=== PATIENT | male | born 1950 | race African-American/Black ===

== ENCOUNTER 2016-06-11 03:47 | Emergency (ER) | payer BC, MEDICARE ==
[~2016-06-11] VITALS: Ht 180.3 cm; Wt 125.0 kg
[~2016-06-11 03:47] MED LIST: AMIO200T44 PO; ATOR40TA28 PO; BUME1TAB30 PO; FERR324T4 PO; FISH1CAP49 PO; GABA-771 PO; INSU100V12 SQ; LOSA50TA37 PO; LUBI24CA2 PO; OXYC10 PO; OXYC30TA86 PO; RIVA10 PO; SPIR25 PO; TRAZ-147 PO; VIT1TABL95 PO
[2016-06-11 04:06] LABS: GLUCOSE,POINT OF CARE 229 MG/DL (70-110)
[2016-06-11] MEDS ORDERED: LINA145C PO (04:11)
[2016-06-11] MEDS ORDERED: OXYC10 PO (04:11)
[2016-06-11] MEDS ORDERED: LOSA50TA37 PO (04:11)
[2016-06-11] MEDS ORDERED: BUME1TAB30 PO (04:11)
[2016-06-11] MEDS ORDERED: GABA-771 PO (04:11)
[2016-06-11] MEDS ORDERED: CARV12 PO (04:11)
[2016-06-11] MEDS ORDERED: RANO500T3 PO (04:11)
[2016-06-11] MEDS ORDERED: INSU200I4 SQ (04:11)
[2016-06-11] MEDS ORDERED: INSU100V SQ (04:11)
[2016-06-11] MEDS ORDERED: ASPI81TA42 PO (04:11)
[2016-06-11 05:08] LABS: BASOPHILS % (AUTO) 0.2 % (0.0-2.0); EOSINOPHILS % (AUTO) 1.2 % (1.0-6.0); HEMATOCRIT 31.1 % (41-53); HEMOGLOBIN 9.9 g/dL (13.5-17.5); LYMPHOCYTES # (AUTO) 0.9 K/uL (1.0-4.8); MEAN CORPUSCULAR HEMOGLOBIN 27.2 pg (26.0-34.0); MEAN CORPUSCULAR VOLUME 85 fL (80-100); MONOCYTES # (AUTO) 0.9 K/uL (0.1-1.0); MONOCYTES % (AUTO) 8.8 % (2.0-9.0); NEUTROPHILS # (AUTO) 8.5 K/uL (1.8-7.7); NEUTROPHILS % (AUTO) 80.8 % (40.0-70.0); PLATELET COUNT (AUTO) 182 K/uL (150-450); RED BLOOD CELL COUNT(AUTO) 3.64 MIL/uL (4.50-5.90); RED CELL DISTRIBUTION WIDTH 14.8 % (11.5-14.5); WHITE BLOOD COUNT (AUTO) 10.5 K/uL (4.5-11.0)
[2016-06-11] MEDS ORDERED: PANTOPRAZOLE SODIUM 40 MG/VIAL IVP ONE (05:15)
[2016-06-11] MEDS ORDERED: ONDANSETRON HCL 4 MG/2 ML VIAL IVP ONE (05:15)
[2016-06-11] MEDS ORDERED: MORPHINE SULFATE 4 MG/ML SYRINGE IVP ONE (05:15)
[2016-06-11 05:25] LABS: INR 1.1 (0.9-1.1); PROTHROMBIN TIME 11.6 SEC (9.4-11.6)
[2016-06-11 05:30] LABS: ANION GAP 3 mmol/L (8-16); CALCIUM, TOTAL 8.6 mg/dL (8.8-10.5); CARBON DIOXIDE 30 mmol/L (22-29); CHLORIDE 103 mmol/L (98-107); GLOMERULAR FILTR. RATE CALC > 60 mL/min (>60); POTASSIUM 4.8 mmol/L (3.5-5.1); SODIUM SERUM 136 mmol/L (136-145); UREA NITROGEN, BLOOD 25 mg/dL (7-18)
[2016-06-11 05:45] LABS: B-TYPE NATRIURETIC PEPTIDE 1050 pg/mL (0-100)
[2016-06-11 05:45] LABS: APPEARANCE,URINE CLEAR (CLEAR); GLUCOSE, URINE (UA) NEGATIVE (NEGATIVE); KETONES,URINE NEGATIVE (NEGATIVE); LEUKOCYTE ESTERASE ,URINE NEGATIVE (NEGATIVE); OCCULT BLOOD,URINE NEGATIVE (NEGATIVE)
[2016-06-11 05:50] LABS: ADD UA MICROSCOPIC NO; PROTEIN,URINE NEGATIVE (NEGATIVE)
[2016-06-11 05:55] LABS: ALANINE AMINOTRANSFERASE 40 U/L (12-78); ALBUMIN 3.3 g/dL (3.4-5.0); ASPARTATE AMINOTRANSFERASE 27 U/L (15-37); BILIRUBIN,TOTAL 0.4 mg/dL (0.1-1.0); CREATINE KINASE MB < 0.5 ng/mL (0-5); CREATINE KINASE, TOTAL 114 U/L (39-308); TOTAL PROTEIN, SERUM 7.9 g/dL (6.4-8.2)
[2016-06-11] MEDS ORDERED: BARIUM SULFATE 0.1% SUSPENSION 450 ML BOTTLE PO ONE (06:15)
[2016-06-11 08:11] LABS: GLUCOSE,POINT OF CARE 173 MG/DL (70-110)
[2016-06-11 08:49] VITALS: BP 105/75
== END 2016-06-11 09:12 | disposition home or self-care (01) ==
LOC: EMS 03:48
DX: K80.20 Calculus of gallbladder without cholecystitis without obstruction (principal); I11.0 Hypertensive heart disease with heart failure; I50.9 Heart failure, unspecified; I25.10 Atherosclerotic heart disease of native coronary artery without angina pectoris; E11.9 Type 2 diabetes mellitus without complications; E78.00 Pure hypercholesterolemia, unspecified; Z79.82 Long term (current) use of aspirin
CPT/HCPCS: 36415; 71010; 74010; 74176; 80053; 81003; 82550; 82553; 82962; 83880; 84484; 85025; 85610; 85730; 93005; 96374; 96375; 99285; C9113; J2270; J2405; Z7610